=== PATIENT | male | born 1990 | race Two or more races ===

== ENCOUNTER 2025-04-16 00:11 | Emergency (ER) | payer SELFPAY ==
[2025-04-16 00:32] VITALS: BP 139/92; BMI 19.9
[2025-04-16 01:00] LABS: ALT (SGPT) 14 U/L (0-50); AST (SGOT) 29 U/L (17-59); Albumin 4.5 g/dl (3.5-5.0); Alkaline Phosphatase 57 U/L (38-126); Blood Urea Nitrogen 7 mg/dl (9-20); Calcium 9.9 mg/dl (8.4-10.2); Carbon Dioxide 28 mmol/L (22-30); Chloride 107 mmol/L (98-107); Estimated Creatinine Clearance 112 ml/min; Glucose 79 mg/dl (70-99); Hematocrit 39.2 % (39.0-52.0); Hemoglobin 13.1 g/dL (13.0-18.0); Lipase 157 U/L (23-300); Mean Corp Hgb Conc. 33.4 g/dL (33.0-37.0); Mean Corpuscular Volume 81.0 fL (80.0-94.0); Platelet Count 271 10^3/uL (130-400); Potassium 4.1 mmol/L (3.5-5.1); Red Cell Dist. Width 14.5 % (11.5-14.5); Sodium 140 mmol/L (135-145); Total Protein 7.7 g/dl (6.3-8.2); eGFR > 60.00
[2025-04-16 03:00] VITALS: BP 118/78
[2025-04-16 03:49] LABS: Nucleated Red Blood Cells % 0 % (-)
--- NOTE | 2025-04-16 03:58 | ED.GENMED ---
History of Present Illness
General
Chief Complaint: Abdominal Pain
Source: patient
Exam Limitations: none
Time Seen by Provider: 04/16/25 00:35
Nursing documentation reviewed up to this point in time: agreed with
History of Present Illness
History of Present Illness:
Patient presents to ED from work secondary to lower abdominal pain. Denies vomiting. Denies diarrhea. Denies fever. Denies trauma.
Review of Systems
Review of Systems
Allergies reviewed?: Yes
All Other Systems: ROS reviewed and negative except as documented in HPI and ROS
Constitutional: Reports no symptoms; Denies fever
EENT: Reports no symptoms
Respiratory: Reports no symptoms
Cardiac: Reports no symptoms
ABD/GI: Reports abdominal pain; Denies vomiting or diarrhea
Musculoskeletal: Reports no symptoms
Skin: Reports no symptoms
Neurological: Reports no symptoms
Phy Exam
Physical Exam
Physical Exam:
Physical Exam
General: no apparent distress, not acutely ill. afebrile
Head: nc/at. eomi
Neck: supple. no meningeal signs.
Heart: s1/s2 regular rate and rhythm
Lungs: no acute respiratory distress. clear bilaterally
Abdomen: normal bowel sounds. no distention. mild LLQ tenderness to palpation
Neuro: alert and oriented x 3. no focal neurological deficits
Skin: no rash
Psychiatric: well kept. interactive and cooperative
Extremities: no edema. no calf tenderness.
Course
Orders/Labs/Results
Orders:
Orders
04/16/25 00:14
IV Insert/Care/Rem.- Treatment PRN
04/16/25 00:21
Complete Blood Count/With Diff Urgent
Comprehensive Metabolic Panel Urgent
Lipase Urgent
04/16/25 03:16
CT Abd/pelvis W Iv Cont Urgent
Comment:
Reason For Exam: LLQ pain
Abnormal Lab Results
04/16/25
00:21
MPV 12.6 H fL
(7.4-10.4)
BUN 7 L mg/dl
(9-20)
04/16/25 00:21
04/16/25 00:21
Vital Signs
Initial and Last Documented VS:
Initial Vital Signs
Temp Pulse Resp BP Pulse Ox
98.6 F 72 16 139/92 99
04/16/25 00:32 04/16/25 00:32 04/16/25 00:32 04/16/25 00:32 04/16/25 00:32
Last Documented Vital Signs
Temp Pulse Resp BP Pulse Ox
98.6 F 65 16 118/78 99
04/16/25 00:32 04/16/25 03:00 04/16/25 03:00 04/16/25 03:00 04/16/25 04:01
MDM/Problems Addressed
MDM/Problems Addressed:
CT abdomen pelvis report reviewed and discussed with patient. Normal blood work noted. Patient otherwise remains afebrile, hemodynamically stable, nontoxic-appearing. Patient will be discharged home in stable condition, with recommendation to
follow-up with PCP for reevaluation, or return to ED with worsening symptoms.
*Pulse Oximetry
SaO2: 99
Oxygen Mode of Delivery: Room air
Patient hypoxic: no
*Critical Care Note
Total Time (30-74mins, 75-104mins- exclusive of procedures): Not Applicable
ED Attending Note
-
Portions of this chart may have been created with voice recognition software.� Occasional wrong word or��sound alike� substitutions may have occurred due to the inherent limitations of voice recognition software.
Discharge Plan
Departure
Patient Disposition: Home (Routine Discharge)
Date of Disposition: 04/16/25
Time of Disposition: 04:01
Patient with high blood pressure during this ER visit?: Yes
Condition: Good
Discharge Problem:
Abdominal pain
Instructions: Viral gastroenteritis in adults, Abdominal Pain
Activity Restrictions/Additional Instructions:
As discussed, please follow-up with your primary care physician for reevaluation
Interventions
Interventions:
*Risk Screen - Suicide Last Done: 04/16/25 00:32
*General Assessment Last Done: 04/16/25 00:32
*Neglect/Abuse Screening Last Done: 04/16/25 00:32
*ED- Fall Risk Assessment Last Done: 04/16/25 00:32
*ED COVID-19 Vaccine History Last Done: 04/16/25 05:01
*ED Influenza Vaccine History Last Done: 04/16/25 00:32
*Nursing Disposition Last Done: 04/16/25 05:01
XH-Rzhncf-Qdubaaojek Assessment Last Done: 04/16/25 00:45
Discharge Date and Time
Discharge Date/Time: 04/16/25 05:03
Print Language: TRISTANIAN
== END 2025-04-16 05:03 | disposition home or self-care (01) ==
LOC: EMR 00:11
PROVIDERS: Emergency Medicine; EMERGENCY PHYSICIAN Emergency Medicine
DX: R10.30 Lower abdominal pain, unspecified (principal)
CPT/HCPCS: 99284; 74177; 80053; 83690; 85025; Q9967